=== PATIENT | male | born 1970 | race Caucasian/White ===

== ENCOUNTER 2023-04-23 05:28 | Inpatient (IN) | payer OTHER ==
[~2023-04-23] VITALS: Ht 175.3 cm; Wt 78.0 kg
[2023-04-23] MEDS ORDERED: metroNIDAZOLE 500 mg/NS 100 ML PREMIX IV ONE (09:30)
[2023-04-23] MEDS ORDERED: SERT-436 PO (09:33)
[2023-04-23] MEDS ORDERED: LEUC5TAB PO (09:33)
[2023-04-23] MEDS ORDERED: LORA-259 PO (09:33)
[2023-04-23] MEDS ORDERED: AMLO5TAB4 PO (09:33)
[2023-04-23] MEDS ORDERED: ROSU10TA2 PO (09:33)
[2023-04-23] MEDS ORDERED: METH2.5T PO (09:33)
[2023-04-23] MEDS ORDERED: SUCCINYLCHOLINE CHLORIDE 20 MG/ML(QUELICIN) ONE (10:05)
[2023-04-23] MEDS ORDERED: metroNIDAZOLE 500 mg/NS 100 mL IVPB IV ONE (10:05)
[2023-04-23] MEDS ORDERED: LIDOCAINE PF 2%, 40 MG/2 ML AMP INJ ONE (10:05)
[2023-04-23] MEDS ORDERED: DEXAMETHASONE SOD PHOSPHATE 4 MG/ML VIAL ONE (10:05)
[2023-04-23] MEDS ORDERED: LEVOFLOXACIN 500 mg/D5W 100 mL IVPB IV ONE (10:05)
[2023-04-23] MEDS ORDERED: ONDANSETRON HCL 4 MG/2 ML VIAL ONE (10:05)
[2023-04-23] MEDS ORDERED: NS 100 ML BAG ONE (10:05)
[2023-04-23] MEDS ORDERED: MIDAZOLAM HCL/PF 2 MG/2 ML SYRINGE ONE (10:05)
[2023-04-23] MEDS ORDERED: fentaNYL CITRATE/PF 100 MCG/2 ML AMP ONE (10:05)
[2023-04-23] MEDS ORDERED: PROPOFOL 200MG/ 20ML VIAL (DIPRIVAN) IV ONE (10:05)
[2023-04-23] MEDS ORDERED: NS 1000 ML IV.SOLN IV ONE (10:05)
[2023-04-23] MEDS ORDERED: ROCURONIUM BROMIDE 10 MG/ML (ZEMURON) ONE (10:05)
[2023-04-23] MEDS ORDERED: LR 1,000 ML IV.SOLN IV ONE (10:05)
[2023-04-23] MEDS ORDERED: SUGAMMADEX SODIUM 200 MG/2 ML VIAL IV ONE (10:05)
[2023-04-23] MEDS ORDERED: BUPIVACAINE LIPOSOME/PF 266 MG/20 ML VIAL INFIL ONE (10:11)
[2023-04-23] MEDS ORDERED: ACETAMINOPHEN I.V. 1000 MG 100 ML IV ONE (10:11)
[2023-04-23] MEDS ORDERED: HYDROmorphone 1 MG/ML INJ. CARTRIDGE IVP PRN ×2 (11:30)
[2023-04-23] MEDS ORDERED: LR 1,000 ML IV SCH (11:30)
[2023-04-23] MEDS ORDERED: METOCLOPRAMIDE HCL 10 MG/2 ML VIAL IVP PRN (11:30)
[2023-04-23] MEDS ORDERED: MEPERIDINE HCL/PF 25 MG/ML DISP.SYRIN IVP PRN (11:30)
[2023-04-23] MEDS ORDERED: LABETALOL 100 MG/ 20ML VIAL IVP PRN (11:30)
[2023-04-23] MEDS ORDERED: hydrALAZINE HCL 20 MG/ML VIAL IVP PRN (11:30)
[2023-04-23] MEDS ORDERED: ONDANSETRON HCL 4 MG/2 ML VIAL IVP PRN (13:30)
[2023-04-23] MEDS ORDERED: ACETAMINOPHEN 325 MG TABLET PO PRN (13:30)
[2023-04-23] MEDS: D5/0.45 NS 1,000 ML IV SCH ×2 (13:30→21:47)
[2023-04-23] MEDS ORDERED: NALOXONE HCL 0.4 MG/ML AMP (NARCAN) IVP PRN ×3 (13:30)
[2023-04-23 14:13] LABS: HEMOGLOBIN 14.4 g/dL (14.0-18.0)
[2023-04-23 14:35] LABS: CALCIUM 7.9 mg/dL (8.4-11.0); CREATININE 1.02 mg/dL (0.55-1.30)
[2023-04-23 14:37] LABS: POTASSIUM 2.7 mmol/L (3.5-5.1)
[2023-04-23 15:00] VITALS: BP_SYST 110; PULSE 70; RESP 18; TEMP 97; O2SAT 100
[2023-04-23] MEDS: metroNIDAZOLE 500 mg/NS 100 ML IV SCH (16:17)
[2023-04-23] MEDS: HYDROmorphone 1 MG/ML INJ. CARTRIDGE IVP PRN (16:19)
[2023-04-23 17:05] VITALS: PULSE 70; RESP 18; TEMP 97
[2023-04-23] MEDS ORDERED: POTASSIUM CHLORIDE 40 MEQ in NS 250 ML IV ONE (18:00)
[2023-04-23 19:30] VITALS: O2SAT 95
[2023-04-23 20:00] VITALS: BP_SYST 123; PULSE 76; RESP 18; TEMP 97.9; O2SAT 95
[2023-04-23] MEDS: HYDROcodone/ACETAMIN 5-325 MG TAB (NORCO/ VICODIN) PO PRN (21:14)
[2023-04-23] MEDS: FAMOTIDINE PF 20 MG/2 ML VIAL IVP SCH (21:14)
[2023-04-24] VITALS (7 sets, daily range): BP systolic 102–119; PULSE 65–75; RESP 18; TEMP 97.3–97.9; O2SAT 91–95
[2023-04-24] MEDS: metroNIDAZOLE 500 mg/NS 100 ML IV SCH (00:15)
[2023-04-24] MEDS: HYDROmorphone 1 MG/ML INJ. CARTRIDGE IVP PRN ×2 (05:12→10:00)
[2023-04-24 05:15] LABS: HEMATOCRIT 39.3 % (36-54); HEMOGLOBIN 13.2 g/dL (14.0-18.0); LYMPHOCYTES # (AUTO) 0.8 K/uL (1.0-5.5); LYMPHOCYTES % (AUTO) 6.4 % (20.5-51.5); MEAN CORPUSCULAR HEMOGLOBIN 30 pg (27-31); MEAN CORPUSCULAR HGB CONC 34 % (32-36); MEAN CORPUSCULAR VOLUME 90 fL (79.0-98.0); MONOCYTES # (AUTO) 0.9 K/uL (0.0-1.0); MONOCYTES % (AUTO) 7.3 % (1.7-9.3); NEUTROPHILS # (AUTO) 10.4 K/uL (1.8-7.7); NEUTROPHILS % (AUTO) 86.3 % (40.0-70.0); PLATELET COUNT (AUTO) 251 K/uL (130-430); RED BLOOD CELL COUNT(AUTO) 4.39 MIL/uL (4.2-6.2); RED CELL DISTRIBUTION WIDTH 14.6 % (9.0-15.0)
[2023-04-24 05:23] LABS: ALBUMIN 3.2 g/dL (3.4-4.8); CALCIUM 8.4 mg/dL (8.4-11.0); CREATININE 0.96 mg/dL (0.55-1.30); POTASSIUM 3.5 mmol/L (3.5-5.1); TOTAL BILIRUBIN 0.5 mg/dL (0.0-1.0)
[2023-04-24] MEDS: FAMOTIDINE PF 20 MG/2 ML VIAL IVP SCH ×2 (08:16→21:10)
[2023-04-24] MEDS: D5/0.45 NS 1,000 ML IV SCH ×2 (11:14→21:09)
[2023-04-24] MEDS: ENOXAPARIN SODIUM 30 MG/0.3 ML SYRINGE SUBCUT SCH (11:24)
[2023-04-24] MEDS: HYDROcodone/ACETAMIN 5-325 MG TAB (NORCO/ VICODIN) PO PRN ×2 (15:05→21:10)
[2023-04-24] MEDS: METOCLOPRAMIDE HCL 10 MG/2 ML VIAL IVP SCH ×2 (18:15→23:19)
[2023-04-25 02:15] VITALS: BP_SYST 112; PULSE 72; RESP 18; TEMP 98.7; O2SAT 93
[2023-04-25] MEDS: D5/0.45 NS 1,000 ML IV SCH (05:28)
[2023-04-25] MEDS: METOCLOPRAMIDE HCL 10 MG/2 ML VIAL IVP SCH ×2 (05:28→12:32)
[2023-04-25 08:00] VITALS: BP_SYST 120; PULSE 72; RESP 16; TEMP 98.4; O2SAT 98
[2023-04-25] MEDS: ENOXAPARIN SODIUM 30 MG/0.3 ML SYRINGE SUBCUT SCH (09:00)
[2023-04-25] MEDS: HYDROcodone/ACETAMIN 5-325 MG TAB (NORCO/ VICODIN) PO PRN ×2 (10:16→14:11)
[2023-04-25] MEDS: FAMOTIDINE PF 20 MG/2 ML VIAL IVP SCH (10:28)
[2023-04-25 12:00] VITALS: BP_SYST 118; PULSE 67; RESP 18; TEMP 98.2; O2SAT 100
[2023-04-25 16:23] VITALS: BP_SYST 110; PULSE 85; RESP 18; TEMP 98.2; O2SAT 100
== END 2023-04-25 17:47 | disposition home or self-care (01) | DRG 331 ==
LOC: SMU 08:06
PROVIDERS: ADMIT Colon & Rectal Surgery; ATTEND Colon & Rectal Surgery
PROC: 0DTF0ZZ Resection of Right Large Intestine, Open Approach (ICD-10-PCS; principal; 2023-04-23 10:13)
DX: K63.9 Disease of intestine, unspecified (principal)
CPT/HCPCS: 36415; 80048; 80053; 84132; 85018; 85025; 86886; 86900; 86901; 87081; 88307; 88309; 97116-GP; 97530-GP; C9290; J0131; J0330; J1100; J1170; J1650; J1956; J2001; J2405; J2704; J2765; J3010; J3465; J3480; J3490; J7030; J7050; J7120

== ENCOUNTER 2023-08-13 09:31 | Emergency (ER) | payer OTHER ==
[~2023-08-13] VITALS: Ht 172.7 cm; Wt 77.1 kg
[~2023-08-13 09:31] MED LIST: AMLO5TAB4 PO; LEUC5TAB PO; LORA-259 PO; METH2.5T PO; ROSU10TA2 PO; SERT-436 PO
[2023-08-13 10:22] LABS: BASOPHILS # (AUTO) 0.1 K/uL (0.0-0.2); BASOPHILS % (AUTO) 1.1 % (0.0-2.0); EOSINOPHILS # (AUTO) 0.3 K/uL (0.0-0.4); EOSINOPHILS % (AUTO) 3.4 % (0.0-4.0); HEMATOCRIT 48.2 % (36-54); HEMOGLOBIN 15.3 g/dL (14.0-18.0); LYMPHOCYTES # (AUTO) 1.7 K/uL (1.0-5.5); LYMPHOCYTES % (AUTO) 16.7 % (20.5-51.5); MEAN CORPUSCULAR HEMOGLOBIN 27 pg (27-31); MEAN CORPUSCULAR HGB CONC 32 % (32-36); MEAN CORPUSCULAR VOLUME 85 fL (79.0-98.0); MONOCYTES # (AUTO) 0.8 K/uL (0.0-1.0); MONOCYTES % (AUTO) 7.6 % (1.7-9.3); NEUTROPHILS # (AUTO) 7.1 K/uL (1.8-7.7); NEUTROPHILS % (AUTO) 71.2 % (40.0-70.0); PLATELET COUNT (AUTO) 248 K/uL (130-430); RED BLOOD CELL COUNT(AUTO) 5.65 MIL/uL (4.2-6.2); RED CELL DISTRIBUTION WIDTH 14.9 % (9.0-15.0)
[2023-08-13 10:27] LABS: CALCIUM 9.6 mg/dL (8.4-11.0); CREATININE 0.85 mg/dL (0.55-1.30)
[2023-08-13 12:50] VITALS: BP_SYST 127; PULSE 61; RESP 18; TEMP 96.7; O2SAT 98
[2023-08-13] MEDS ORDERED: METR-154 PO (12:55)
[2023-08-13] MEDS ORDERED: CIPR-260 PO (12:55)
[2023-08-13 13:12] VITALS: BP_SYST 148; PULSE 88; RESP 18; TEMP 98.3; O2SAT 98
== END 2023-08-13 13:10 | disposition home or self-care (01) ==
LOC: SED 09:31
DX: K52.9 Noninfective gastroenteritis and colitis, unspecified (principal); R10.31 Right lower quadrant pain; Z88.1 Allergy status to other antibiotic agents; Z88.2 Allergy status to sulfonamides; Z79.899 Other long term (current) drug therapy
CPT/HCPCS: 36415; 76376; 80048; 85025; 99284